=== PATIENT | female | born 2000 | race Caucasian/White ===

== ENCOUNTER 2022-04-29 22:39 | Emergency (ER) | payer BC ==
[~2022-04-29] VITALS: Ht 160 cm; Wt 61.7 kg
[2022-04-29] MEDS ORDERED: AUROVELA FE 1-1 EACH PO (22:53)
== END 2022-04-30 01:44 | disposition home or self-care (01) ==
LOC: ED 22:39
DX: S01.511A Laceration without foreign body of lip, initial encounter (principal); S01.81XA Laceration without foreign body of other part of head, initial encounter; W54.0XXA Bitten by dog, initial encounter; Y93.89 Activity, other specified; Y92.89 Other specified places as the place of occurrence of the external cause; Y99.8 Other external cause status